=== PATIENT | male | born 1955 | race Caucasian/White ===

== ENCOUNTER 2022-11-19 20:47 | Emergency (ER) | payer OTHER ==
--- OUTSIDE RECORDS SUMMARY | 2022-11-19 20:50 | XMS REPORT | Continuity of Care Document ---
:1955 Author Organization [facility] t Address [address] [place] [address] Care Team Providers Name Role Phone JAYY SNOWDEN Primary Care Physician Unavailable Juan Rodriguez Attending Clinician Unavailable Laci Batista Attending Clinician Omayra Attending Clinician Unavailable Juan Antonio Freitas Attending Clinician [phone] CARLENE MCDONNELL Attending Clinician Unavailable Doctor Unassigned, [place] Attending Clinician Unavailable Lab, Adc Fam Pob I Attending Clinician Unavailable Karissa Asencio Attending Clinician Barb Jacobs Attending Clinician BARB RAYMOND Attending Clinician Unavailable Pcp, Patient Does Not Have A Attending Clinician [phone] ISI HERNÁNDEZ Admitting Clinician Unavailable Omayra Admitting Clinician Unavailable Payers Payer Name Policy Type Policy Number Effective Date Expiration Date S kezia MEDICARE B-[place]: [id number] 2018 [employer] 00:00:00 [employer] [id number] 2018 [employer] 00:00:00 (MEDICARE SUPPLEMENT) MEDICARE PART A \T\ [id number] 2018 B 00:00:00 COMMERCIAL [id number] 2019 NON-CONTRACT GENERIC 00:00:00 Problems Condition Condition Condition Status Onset Resolution Last Treating Co mments Source Name Details Category Date Date Treatment Clinician Date Carpal Carpal Problem Active 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 Allergies, Adverse Reactions, Alerts Allergy Allergy Status Severity Reaction(s) Onset Inactive Treating Comm ents Source Name Type Date Date Clinician No Known DA Active [facility] [place] [facility] No Known DA Active [facility]erg[facility] 02[facility]10 [place] [facility] [facility] NO KNOWN Drug Active Univers ALLERGIE Class ity of [facility] Social History Social Habit Start Date Stop Date Quantity Comments Source Exposure to Yes [facility] SARS-CoV-2 (event) [facility] Sex Assigned At [birth year] [facility] 00:00:00 00:00:00 [facility] [place] Smoking Status Start Date Stop Date Source Unknown if ever smoked [facility] Medications This patient has no known medications. Procedures Procedure Date / Time Performed Performing Clinician [facility] e ASSIGNMENT OF BENEFITS 2021-10-09 14:03:46 Doctor Unassigned, No [facility] Encounters Start End Encounter Admission Attending Care Care Encounter Source Date/Time Date/Time Type Type Clinicians Facility Department ID 2020-01-13 Inpatient JH Colin DAYS [id number] [facility] 15:05:[address] [place] [address] Orthope dic Hospita l 2022-07-02 2022-07-02 Ambulatory [facility] CAROLYN [id number] [facility] 14:15:00 14:15:00 Pre-Reg Neurology 01 jose david Herndon 2022-07-02 2022-07-02 Outpatient [facility] FRANKI [id number] [facility]oria 08:15:00 08:15:00 01 jose david Herndon 2022-07-02 2022-07-02 Outpatient OLESYA BatistaSCHKANA [id number] 08:15:00 08:15:00 Laci Santy Erasto 2022-01-15 2022-01-15 Outpatient FOG_Burke_R AOSM AOSM [id number] [place] 10:01:00 10:01:00 Carlene [id number] Ortho pe dic Sports Medicin e 2022-01-09 2022-01-09 Outpatient FOG_Burke_R AOSM AOSM [id number] [place] 04:41:00 04:41:00 Carlene [id number] Ortho pe dic Sports Medicin e 2022-01-09 2022-01-09 Outpatient Fortino AOBEENA AOSM [id number] 00:00:00 00:00:00 Juan Antonio Rubalcava [id number] 2022-01-02 2022-01-02 Outpatient FOG_Burke_R AOSM AOSM [id number] [place] 03:07:00 03:07:00 Carlene [id number] Ortho pe dic Sports Medicin e 2022-01-02 2022-01-02 Outpatient Fortino AOSM AOSM [id number] 00:00:00 00:00:00 Juan Antonio Rubalcava [id number] 2022-01-01 2022-01-01 Outpatient FOG_Burke_R AOSM AOSM [id number] [place] 12:21:00 12:21:00 Carlene [id number] Ortho pe dic Sports Medicin e 2021-12-26 2021-12-26 Outpatient FOG_Burke_R AOSM AOSM [id number] [place] 05:59:00 05:59:00 Carlene [id number] Ortho pe dic Sports Medicin e 2021-12-26 2021-12-26 Outpatient FOG_Burke_R AOSM AOSM [id number] [place] 05:59:00 05:59:00 Carlene [id number] Ortho pe dic Sports Medicin e 2021-12-26 2021-12-26 Outpatient FOG_Burke_R AOSM AOSM [id number] [place] 05:14:00 05:14:00 Carlene [id number] Ortho pe dic Sports Medicin e 2021-10-09 2021-10-09 Outpatient Rashaad MCDONNELL [facility] [id number] Univers 09:00:00 09:14:49 CARLENE chakraborty [facility] 2021-10-09 2021-10-09 Orders Doctor KIN [id number] Univers 00:00:00 00:00:00 Only Unassigned, DANII [id number] ity of [place] [facility] [id number] Freddie as [phone] [address] 2020-07-26 2020-07-26 Laboratory Lab, [facility] [id number]. [id number] Univers 09:29:45 09:49:45 Only Karissa [facility] [id number] ity of [place] [id number] Freddie as Professio [phone] [address] Office Building [facility] 2020-07-26 2020-07-26 Outpatient R [facility] [id number] Univers 09:20:00 09:20:00 ity of [facility] 2020-01-11 2020-01-11 [place] [facility], [facility] [id number] 15:23:44 15:33:44 [facility] [id number] [place] [id number] Professio [phone] [address] 2020-01-11 2020-01-11 [place] [facility], [facility] [id number]. [id number] Univers 15:23:44 15:33:44 Visit Barb [facility] [id number] ity of [place] [id number] Freddie as Professio [phone] [place] [facility] Office Building [facility] 2020-01-11 2020-01-11 [facility] [id number] Univers 15:20:00 15:20:00 BARB ity of [facility] 2019-12-16 2019-12-17 Outpatient nullFlavo MNA [id number] Mem[facility] 13:15:00 04:59:59 r Neurology 00 l Augustadiamond Herndon 2019-12-16 2019-12-16 Outpatient OLESYA Batista [id number] 08:15:00 23:59:59 Laci 00 Erasto 2019-12-16 2019-12-16 Outpatient [facility] IE [id number] Memoria 08:15:00 08:15:00 00 l Yanick 2019-12-12 2019-12-12 Telephone Pcp, [facility] [id number] 00:00:00 00:00:00 Patient [place] [id number] Does Not Walter [id number] Have A Professio [phone] [address] 2019-12-12 2019-12-12 Telephone Pcp, [facility] [id number] [facility] 00:00:00 00:00:00 Patient [place] [id number] i ty of Does Not Walter [id number] Freddie as Have A Professio [phone] [place] [facility] Results This patient has no known results.
[2022-11-19 22:38] LABS: Specific Gravity 1.011 (1.005-1.030); Urine Bacteria None Seen /HPF (<20); Urine Bilirubin NEGATIVE (Negative); Urine Blood Negative (Negative); Urine Clarity Clear (Clear); Urine Color Light-Yellow (Yellow); Urine Glucose NEGATIVE (Negative); Urine Mucus Slight /HPF (None Seen); Urine Protein NEGATIVE (Negative); Urine RBC <5 /HPF (None Seen); Urine Urobilinogen Normal (Normal); Urine pH 6.5 (5.0-7.0)
--- NOTE | 2022-11-19 23:34 | EDPHYS ---
Physician Documentation [facility] Name: Juliette Pearson Age: 67 yrs Sex: Male : 1955 Arrival Date: 11/19/2022 Time: 20:47 Bed 11 Private MD: ED Physician Binu Amin HPI: 11/19 23:00 This 67 yrs old Male presents to ER via Ambulatory with complaints of Groin Pain. cp 23:00 The patient presents with pain, that is acute. The complaints affect the right groin. cp 23:00 Context: The problem was sustained at home, resulted from an unknown cause. Onset: The cp symptoms/episode began/occurred this evening while at home sitting. Associated signs and symptoms: The patient has no apparent associated signs or symptoms. Treatment prior to arrival includes: no previous treatment. Severity of symptoms: in the emergency department the symptoms have resolved, and did so just prior to arrival. Patient reports pain to right groin intermittent, sharp that started this evening while at home. Pain now resolved. Denies injury to area, denies any recent procedures. Historical: - Allergies: 21:13 No Known Allergies; kl - Home Meds: 21:13 valsartan oral [Active]; kl - PMHx: 21:13 high cholesteral; kl - Immunization history:: Adult Immunizations not up to date. - Social history:: Smoking status: Patient denies any tobacco usage or history of. ROS: 23:05 Constitutional: Negative for body aches, chills, fever, poor PO intake. cp 23:05 Eyes: Negative for injury, pain, redness, and discharge. cp 23:05 ENT: Negative for drainage from ear(s), ear pain, sore throat, difficulty swallowing, difficulty handling secretions. 23:05 Cardiovascular: Negative for chest pain, palpitations. 23:05 Respiratory: Negative for cough, shortness of breath, wheezing. 23:05 Abdomen/GI: Negative for abdominal pain, nausea, vomiting, and diarrhea. 23:05 Back: Negative for pain at rest, pain with movement. 23:05 : Negative for urinary symptoms, flank pain, penile discharge, testicular pain 23:05 Skin: Negative for cellulitis, rash. 23:05 Neuro: Negative for altered mental status, dizziness, headache, numbness, tingling, weakness. 23:05 All other systems are negative. Exam: 23:10 Constitutional: The patient appears in no acute distress, alert, awake, comfortable, cp non-diaphoretic, non-toxic, well developed, well nourished. 23:10 Head/Face: Normocephalic, atraumatic. cp 23:10 Chest/axilla: Inspection: normal. 23:10 Cardiovascular: Rate: normal. 23:10 Respiratory: the patient does not display signs of respiratory distress, Respirations: normal, no use of accessory muscles, no retractions, labored breathing, is not present. 23:10 Abdomen/GI: Inspection: abdomen appears normal, Palpation: abdomen is soft and non-tender, in all quadrants. 23:10 Back: pain, is absent, ROM is normal, Straight leg raises: of both lower extremities does not illicit pain. 23:10 Musculoskeletal/extremity: Extremities: noted in the right groin: non-tender, no swelling noted. 23:10 Neuro: Gait: is steady, at a normal pace, without difficulty. Vital Signs: 21:12 BP 130 / 83; Pulse 76; Resp 18; Temp 97.3(TE); Weight 85.73 kg (R); Height 5 ft. 9 in. kl ; Pain 0/10; 23:48 Resp 18; Temp 98(O); Pulse Ox 99% ; kl 21:12 Body Mass Index 27.91 (85.73 kg, 175.26 cm) kl 21:12 Pain Scale: Adult kl MDM: 21:19 Patient medically screened. cp 23:00 Differential diagnosis: abscess, cellulitis, hernia, uti, kidney stone. cp 23:32 Data reviewed: vital signs, nurses notes. cp 23:32 Consideration of Admission/Observation Escalation of care including cp admission/observation considered. Test considered but Not performed: Labs: cbc, bmp. CT: abdomen/pelvis. Counseling: I had a detailed discussion with the patient and/or guardian regarding: the historical points, exam findings, and any diagnostic results supporting the discharge/admit diagnosis, lab results, to return to the emergency department if symptoms worsen or persist or if there are any questions or concerns that arise at home. 11/19 21:15 Order name: Urinalysis W/Microscopic; Complete Time: 23:28 cp Administered Medications: No medications were administered Disposition Summary: 11/19/22 23:33 Discharge Ordered Location: Home cp Problem: new cp Symptoms: are resolved cp Condition: Stable cp Diagnosis - Pain, unspecified - resolved, right groin cp Followup: cp - With: Private Physician - When: 1 - 2 days - Reason: Recheck today's complaints Discharge Instructions: - Discharge Summary Sheet cp - Musculoskeletal Pain cp Forms: - Medication Reconciliation Form cp - Thank You Letter cp - Antibiotic Education cp - Prescription Opioid Use cp Signatures: Dispatcher [employer] Sandi Leonard RN RN kl Page, Corey, PA PA cp Corrections: (The following items were deleted from the chart) 11/20 19:59 11/19 22:00 This 67 yrs old Male presents to ER via Ambulatory with complaints of Groin cp Pain. cp
--- NOTE | 2022-11-19 23:34 | ER ---
Nurse's Notes [facility] Name: Juliette Pearson Age: 67 yrs Sex: Male : 1955 Arrival Date: 11/19/2022 Time: 20:47 Bed 11 Private MD: Diagnosis: Pain, unspecified-resolved, right groin Presentation: 11/19 21:12 Chief complaint: Patient states: right sharp intermittent groin pain sudden onset kl resolved a this point. Coronavirus screen: Vaccine status: Patient reports receiving the 2nd dose of the covid vaccine. Ebola Screen: Patient negative for fever greater than or equal to 101.5 degrees Fahrenheit, and additional compatible Ebola Virus Disease symptoms. Initial Sepsis Screen: Does the patient meet any 2 criteria? No. Patient's initial sepsis screen is negative. Does the patient have a suspected source of infection? No. Patient's initial sepsis screen is negative. Risk Assessment: Do you want to hurt yourself or someone else? Patient reports no desire to harm self or others. 21:12 Method Of Arrival: Ambulatory kl 21:12 Acuity: CHARLES 4 kl Triage Assessment: 21:14 General: Appears in no apparent distress. Behavior is calm, cooperative. Pain: Denies kl pain. : No deficits noted. No signs and/or symptoms were reported regarding the genitourinary system. Historical: - Allergies: 21:13 No Known Allergies; kl - Home Meds: 21:13 valsartan oral [Active]; kl - PMHx: 21:13 high cholesteral; kl - Immunization history:: Adult Immunizations not up to date. - Social history:: Smoking status: Patient denies any tobacco usage or history of. Screenin:48 [facility] ED Fall Risk Assessment (Adult) History of falling in the last 3 months, kl including since admission No falls in past 3 months (0 pts) Confusion or Disorientation No (0 pts) Intoxicated or Sedated No (0 pts) Impaired Gait No (0 pts) Mobility Assist Device Used No (0 pt) Altered Elimination No (0 pt). Abuse screen: Denies threats or abuse. Nutritional screening: No deficits noted. Tuberculosis screening: No symptoms or risk factors identified. Assessment: 23:47 Reassessment: Patient appears in no apparent distress at this time. Patient and/or kl family updated on plan of care and expected duration. Pain level reassessed. Patient is alert, oriented x 3, equal unlabored respirations, skin warm/dry/pink. Patient denies pain at this time. General: Appears in no apparent distress. Vital Signs: 21:12 BP 130 / 83; Pulse 76; Resp 18; Temp 97.3(TE); Weight 85.73 kg (R); Height 5 ft. 9 in. kl ; Pain 0/10; 23:48 Resp 18; Temp 98(O); Pulse Ox 99% ; kl 21:12 Body Mass Index 27.91 (85.73 kg, 175.26 cm) kl 21:12 Pain Scale: Adult ED Course: 20:50 Patient arrived in ED. mr 21:13 Triage completed. kl 21:15 Binu Jaffe PA is PHCP. cp 21:15 Binu Amin MD is Attending Physician. cp 22:31 Urinalysis W/Microscopic Sent. [facility] 23:48 No provider procedures requiring assistance completed. Patient did not have IV access kl during this emergency room visit. 23:48 Patient has correct armband on for positive identification. kl Administered Medications: No medications were administered Medication: 23:48 VIS not applicable for this client. Outcome: 23:33 Discharge ordered by . cp 23:48 Discharged to home ambulatory. 23:48 Condition: stable 23:48 Discharge instructions given to patient, Instructed on discharge instructions, follow up and referral plans. Demonstrated understanding of instructions, follow-up care. 23:49 Patient left the ED. Signatures: Sandi Ruelas RN RN kl Rivera, Mary mr Binu Jaffe PA PA Mally Martel [facility]
[2022-11-20 00:43] VITALS: BP 130/83
[2022-11-20 00:44] VITALS: TEMP 98; O2SAT 99
== END 2022-11-19 23:49 | disposition home or self-care (01) ==
LOC: ER 20:47
DX: R10.31 Right lower quadrant pain (principal)
CPT/HCPCS: 81001; 99283